=== PATIENT | female | born 1975 | race Asian ===

== ENCOUNTER → 2020-08-29 14:21 | Outpatient (BNVA) | payer OTHER, SELFPAY | PROVIDERS: Visit Provider Orthopaedic Surgery | DX: M17.11 Unilateral primary osteoarthritis, right knee (principal) | CPT/HCPCS: 20610; J1040 ==

== ENCOUNTER 2022-01-31 08:52 | Outpatient (REF) | payer OTHER, SELFPAY ==
--- NOTE | ~2022-01-31 | XR_ITS ---
EXAMINATION: BILATERAL KNEE X-RAY CLINICAL INFORMATION: Pain COMPARISON: Previous x-ray most recent August 2019 TECHNIQUE: Standing AP, lateral and sunrise view of each knee FINDINGS: Right: There is rotation of the right knee medially on the standing AP view. Bone alignment is otherwise normal. There is mild joint space narrowing at the medial femoral tibial joint. Joint spaces are otherwise normal. There is no joint effusion. Left: Bone alignment is normal. No fracture or dislocation is seen. There is mild joint space narrowing at the medial femoral tibial joint. The joint spaces are otherwise normal. There is no joint effusion. XR/XR knee RT 2V IMPRESSION: There is rotation of the right knee joint on the standing AP view. Mild bilateral medial femoral tibial joint space narrowing.
--- NOTE | ~2022-01-31 | XR_ITS ---
EXAMINATION: BILATERAL KNEE X-RAY CLINICAL INFORMATION: Pain COMPARISON: Previous x-ray most recent August 2019 TECHNIQUE: Standing AP, lateral and sunrise view of each knee FINDINGS: Right: There is rotation of the right knee medially on the standing AP view. Bone alignment is otherwise normal. There is mild joint space narrowing at the medial femoral tibial joint. Joint spaces are otherwise normal. There is no joint effusion. Left: Bone alignment is normal. No fracture or dislocation is seen. There is mild joint space narrowing at the medial femoral tibial joint. The joint spaces are otherwise normal. There is no joint effusion. XR/XR knee standing BI IMPRESSION: There is rotation of the right knee joint on the standing AP view. Mild bilateral medial femoral tibial joint space narrowing.
--- NOTE | ~2022-01-31 | XR_ITS ---
EXAMINATION: BILATERAL KNEE X-RAY CLINICAL INFORMATION: Pain COMPARISON: Previous x-ray most recent August 2019 TECHNIQUE: Standing AP, lateral and sunrise view of each knee FINDINGS: Right: There is rotation of the right knee medially on the standing AP view. Bone alignment is otherwise normal. There is mild joint space narrowing at the medial femoral tibial joint. Joint spaces are otherwise normal. There is no joint effusion. Left: Bone alignment is normal. No fracture or dislocation is seen. There is mild joint space narrowing at the medial femoral tibial joint. The joint spaces are otherwise normal. There is no joint effusion. XR/XR knee LT 2V IMPRESSION: There is rotation of the right knee joint on the standing AP view. Mild bilateral medial femoral tibial joint space narrowing.
== END 2022-01-31 08:53 | disposition home or self-care (01) ==
LOC: HO.HOSX 08:52
PROVIDERS: Visit Provider Orthopaedic Surgery
DX: M17.11 Unilateral primary osteoarthritis, right knee (principal); M25.562 Pain in left knee
CPT/HCPCS: 20610; 73560; 73565; J1100